=== PATIENT | male | born 1980 | race Caucasian/White ===

== ENCOUNTER 2020-12-08 01:45 | Inpatient (IN) | payer MEDICAID, SELFPAY ==
[2020-12-08] VITALS (52 sets, daily range): BP systolic 98–147; BP diastolic 63–87; PULSE 44–78; RESP 8–23; TEMP 36.6–36.8; O2SAT 89–100; BMI 19.5
--- NOTE | 2020-12-08 02:00 | XRR_ITS ---
PROCEDURE INFORMATION: Exam: XR Chest Exam date and time: 12/08/2020 2:00 AM Age: 40 years old Clinical indication: Other: AMS TECHNIQUE: Imaging protocol: XR of the chest. Views: 1 view. COMPARISON: No relevant prior studies available. FINDINGS: Lungs: Mild nonspecific bilateral pulmonary opacities suggesting mild pneumonia. Pleural spaces: Unremarkable. No pleural effusion. No pneumothorax. Heart/Mediastinum: Unremarkable. No cardiomegaly. Bones/joints: Unremarkable. XR/XR chest 1V portable [id number] IMPRESSION: Mild nonspecific bilateral pulmonary opacities suggesting mild pneumonia.
--- NOTE | 2020-12-08 02:00 | CTR_ITS ---
PROCEDURE INFORMATION: Exam: CT Head Without Contrast Exam date and time: 12/08/2020 2:00 AM Age: 40 years old Clinical indication: Altered mental status/memory loss; Confusion or disorientation; Additional info: AMS TECHNIQUE: Imaging protocol: Computed tomography of the head without contrast. Radiation optimization: All CT scans at this facility use at least one of these dose optimization techniques: automated exposure control; mA and/or kV adjustment per patient size (includes targeted exams where dose is matched to clinical indication); or iterative reconstruction. COMPARISON: No relevant prior studies available. RADIATION DOSE METRICS: Total DLP (mGy-cm): 749.08 FINDINGS: Brain: Mild frontotemporal lobe atrophy. Correlation with frontotemporal dementia may be helpful. Cerebral ventricles: No ventriculomegaly. Paranasal sinuses: Visualized sinuses are unremarkable. No fluid levels. Mastoid air cells: Visualized mastoid air cells are well aerated. Bones/joints: Unremarkable. No acute fracture. Soft tissues: Unremarkable. CT/CT head wo con* [id number] IMPRESSION: Mild frontotemporal lobe atrophy. Correlation with frontotemporal dementia may be helpful. Radiation Dose CTDIVOL = (mGy): DLP = 749.08 (mGy-cm)
--- NOTE | 2020-12-08 02:00 | ECG_ITS ---
[facility] Test Date: 2020-12-08 Pat Name: Satya Moody Department: Room: Gender: Male Towel Folder: : 1980 Requested By: Mason Partida Order Number: [id number] Farley MD: Jannet Mike M.D. Measurements Intervals Alexis Rate: 47 P: 43 AK: 178 QRS: 64 QRSD: 105 T: 53 QT: 428 QTc: 382 Interpretive Statements SINUS BRADYCARDIA POSSIBLE RIGHT VENTRICULAR CONDUCTION DELAY [RSR (QR) IN V1/V2] No previous ECG available for comparison Electronically Signed On 12-08-2020 13:05:15 CDT by Jannet Mike M.D. [id number]
[2020-12-08 02:02] LABS: ABG PH Result 7.42 (7.35-7.45); Arterial Blood Gas Hematocrit 36.4 % (42-52); Base Excess ABG 1.6 mmol/L (-2.0-2.0); Blood Gas Operator Identificat HARKR; Blood Gas Sample Site Brachial, right; Blood Gas Sample Type Arterial; Carboxyhemoglobin 0.8 %THgb (0.4-20.1); HCO3 ABG 26.3 mmol/L (22-26); Ionized Calcium Level - ABG 1.2 mmol/L (1.1-1.4); Oxygen Device ROOM AIR; Oxygen Saturation ABG 98.7; Potassium Level - ABG 3.7 mmol/L (3.5-5.0); Total Hemoglobin 11.9 g/dL (14-18)
[2020-12-08 02:12] LABS: Glucose Point of Care 103 mg/dL (70-110)
[2020-12-08 02:12] LABS: Basophils # 0.1 10^3/uL (0.0-0.1); Basophils % 0.8 %; Eosinophils # 0.8 10^3/uL (0.0-0.8); Hematocrit 35.1 % (42.0-52.0); Hemoglobin 11.9 g/dL (11.7-16.6); Lymphocytes # 5.1 10^3/uL (0.8-4.8); Lymphocytes % 45.6 %; Mean Corpuscular HGB Conc 33.9 g/dL (30.0-36.0); Mean Corpuscular Hemoglobin 32.9 pg (28.0-34.0); Mean Platelet Volume 10.4 fL (7.4-10.4); Monocytes # 0.8 10^3/uL (0.2-0.9); Monocytes % 7.2 %; Neutrophils # 4.33 10^3/uL (1.8-7.7); Neutrophils % 39.2 %; Nucleated Red Blood Cells % 0 %; Platelet Count 276 10^3/cmm (130-400); Red Blood Count 3.62 10^6/uL (4.1-5.3); Red Cell Distribution Width 12.4 % (12.1-15.1); White Blood Count 11.1 10^3/uL (4.0-10.0)
[2020-12-08] MEDS: sodium chloride 0.9% 1,000 ML 999 ML IV ×2 (02:36→03:22)
[2020-12-08 02:38] LABS: Alanine Aminotransferase 13 U/L (0-41); Albumin Level 3.5 g/dL (3.5-5.2); Alkaline Phosphatase 63 IU/L (40-130); Aspartate Amino Transferase 12 U/L (0-40); Blood Urea Nitrogen 11 mg/dL (6-20); Calcium 8.2 mg/dL (8.5-10.5); Carbon Dioxide 27 mmol/L (22-29); Chloride 108 mmol/L (98-107); Globulin 2.1 g/dL (1.3-4.6); Glomerular Filtration Rate 83.6 mL/min (90-130); Glucose 96 mg/dL (65-115); Osmolality Calculated 295 mOsm/kg (285-295); Salicylate 2.5 mg/dL (3-10); Sodium 143 mmol/L (136-145); Total Bilirubin 0.2 mg/dL (0.15-1.2); Total Protein 5.6 g/dL (6.6-8.7)
--- NOTE | 2020-12-08 02:39 | ED_ITS ---
HPI - Psych General: Chief Complaint: Psychiatric Symptoms Stated Complaint: SI ATTEMPT Time Seen by Provider: 12/08/20 01:46 Procedures Laceration Laceration 1: Site: upper extremity Side (If applicable): left Size (cm): 14 Description: linear and clean Depth: involves muscle layer Local Anesthetic: lidocaine 1% Amount of anesthesia used (mL): 4 Pre-repair: wound explored, irrigated extensively and deep structures intact Skin layer closed with: other (ethilon) Size (cm): 3-0 and 4-0 Number of sutures: 8 Technique: simple, interrupted Subcutaneous layer closed with: vicryl Size: 4-0 Number of sutures: 3 Course Vital Signs: Vital signs: Vital Signs Temperature 97.8 F 12/08/20 01:45 Pulse Rate 52 L 12/08/20 02:30 Respiratory Rate 16 12/08/20 02:20 Blood Pressure 116/76 12/08/20 02:30 Pulse Oximetry 97 12/08/20 02:30 MDM - Psych Lab Data: Labs: Lab Results 12/08/20 12/08/20 12/08/20 Range/Units 01:52 02:02 02:06 WBC 11.1 H (4.0-10.0) 10^3/ uL RBC 3.62 L (4.1-5.3) 10^6/u L Hgb 11.9 (11.7-16.6) g/dL Hct 35.1 L (42.0-52.0) % MCV 97.0 H (80-94) fl MCH 32.9 (28.0-34.0) pg MCHC 33.9 (30.0-36.0) g/dL RDW 12.4 (12.1-15.1) % Plt Count 276 (130-400) 10^3/c mm MPV 10.4 (7.4-10.4) fL Neut % (Auto) 39.2 % Lymph % (Auto) 45.6 % Pershing % (Auto) 7.2 % Eos % (Auto) 7.0 % Baso % (Auto) 0.8 % Neut # (Auto) 4.33 (1.8-7.7) 10^3/u L Lymph # (Auto) 5.1 H (0.8-4.8) 10^3/u L Pershing # (Auto) 0.8 (0.2-0.9) 10^3/u L Eos # (Auto) 0.8 (0.0-0.8) 10^3/u L Baso # (Auto) 0.1 (0.0-0.1) 10^3/u L Nucleated RBC % (a uto) 0 % Nucleated RBCs # 0.0 /100WBC Specimen Type Arterial Sample Site Brachial, right ABG pH 7.42 (7.35-7.45) ABG pCO2 41.0 (35-45) mmHg ABG pO2 101.0 H (80.0-100.0) mmH g ABG HCO3 26.3 H (22-26) mmol/L ABG O2 Saturation 98.7 ABG Base Excess 1.6 (-2.0-2.0) mmol/ L Rajendra Test N/a Hematocrit 36.4 L (42-52) % Hgb O2 Saturation 97.0 (95-100) % Carboxyhemoglobin 0.8 (0.4-20.1) %THgb Methemoglobin 1.0 (0.4-1.5) % Total Hemoglobin 11.9 L (14-18) g/dL Sodium 141.0 (131-143) mmol/L Potassium 3.7 (3.5-5.0) mmol/L Glucose 98.0 (70-115) mg/dL Ionized Calcium 1.2 (1.1-1.4) mmol/L O2 Delivery Device Room air Simplex Printer Installer ID Harkr Carbon Dioxide (22-29) mmol/L Anion Gap (5-19) BUN (6-20) mg/dL Creatinine (0.7-1.2) mg/dL POC Glucose 103 (70-110) mg/dL Calculated Osmolal ity (285-295) mOsm/k g Total Bilirubin (0.15-1.2) mg/dL AST (0-40) U/L ALT (0-41) U/L Alkaline Phosphata se (40-130) IU/L Albumin (3.5-5.2) g/dL Globulin (1.3-4.6) g/dL 12/08/20 Range/Units 02:06 WBC (4.0-10.0) 10^3/ uL RBC (4.1-5.3) 10^6/u L Hgb (11.7-16.6) g/dL Hct (42.0-52.0) % MCV (80-94) fl MCH (28.0-34.0) pg MCHC (30.0-36.0) g/dL RDW (12.1-15.1) % Plt Count (130-400) 10^3/c mm MPV (7.4-10.4) fL Neut % (Auto) % Lymph % (Auto) % Pershing % (Auto) % Eos % (Auto) % Baso % (Auto) % Neut # (Auto) (1.8-7.7) 10^3/u L Lymph # (Auto) (0.8-4.8) 10^3/u L Pershing # (Auto) (0.2-0.9) 10^3/u L Eos # (Auto) (0.0-0.8) 10^3/u L Baso # (Auto) (0.0-0.1) 10^3/u L Nucleated RBC % (a uto) % Nucleated RBCs # /100WBC Specimen Type Sample Site ABG pH (7.35-7.45) ABG pCO2 (35-45) mmHg ABG pO2 (80.0-100.0) mmH g ABG HCO3 (22-26) mmol/L ABG O2 Saturation ABG Base Excess (-2.0-2.0) mmol/ L Rajendra Test Hematocrit (42-52) % Hgb O2 Saturation (95-100) % Carboxyhemoglobin (0.4-20.1) %THgb Methemoglobin (0.4-1.5) % Total Hemoglobin (14-18) g/dL Sodium 143 (131-143) mmol/L Potassium 4.0 (3.5-5.0) mmol/L Glucose 96 (70-115) mg/dL Ionized Calcium (1.1-1.4) mmol/L O2 Delivery Device Simplex Printer Installer ID Carbon Dioxide 27 (22-29) mmol/L Anion Gap 12.0 (5-19) BUN 11 (6-20) mg/dL Creatinine 1.0 (0.7-1.2) mg/dL POC Glucose (70-110) mg/dL Calculated Osmolal ity 295 (285-295) mOsm/k g Total Bilirubin 0.2 (0.15-1.2) mg/dL AST 12 (0-40) U/L ALT 13 (0-41) U/L Alkaline Phosphata se 63 (40-130) IU/L Albumin 3.5 (3.5-5.2) g/dL Globulin 2.1 (1.3-4.6) g/dL Coding Level of Care Code ED Curing Finisher for Vance Gibbons
[2020-12-08 02:43] LABS: Acetaminophen < 5.0 ug/mL (10-30)
--- NOTE | 2020-12-08 03:03 | ED_ITS ---
HPI - Psych General: Chief Complaint: Psychiatric Symptoms Stated Complaint: SI ATTEMPT Time Seen by Provider: 12/08/20 01:46 History of Present Illness: HPI Narrative: 40-year-old male who states that he took somewhere between 5 and 8 Klonopin around 5 hours prior to arrival. He also cut his own left wrist. He states that he does not want to live, because he is in a bad way . EMS was called. He was found to be obtunded on arrival, with a GCS of 12. Narcan was pushed, but with no improvement. The patient is more awake currently. He is able to give us a history. Bleeding was controlled with the laceration. MD complaint: suicidal ideation and other Onset (ago): hour(s) Duration: constant History of same: Yes Relieving factors: none Exacerbating factors: none Associated psychiatric symptoms: depression and suicidal ideation Associated symptoms: Reports suicidal ideation; Deny auditory hallucinations, visual hallucinations or homicidal ideation If self harm: admits thoughts of self harm, has plan, has acted on plan, intentional overdose and self-inflicted trauma Review of Systems Const: Denies: fever(s) Eyes: Denies: change in vision Card: Denies: chest pain Resp: Denies: dyspnea GI: Denies: abdominal pain, nausea or vomiting : Denies: difficulty urinating Psych: Reports: suicidal ideation; Denies: visual hallucinations, auditory hallucinations or homicidal ideation Physical Exam Const: COMMON NORMALS: no acute distress GENERAL APPEARANCE: cooperative and lethargic NUTRITIONAL APPEARANCE: thin ORIENTATION/CONSCIOUSNESS: Yes lethargic HENMT: COMMON NORMALS: normocephalic HEAD & SCALP: normocephalic Eye: COMMON NORMALS: Equal, round and reactive pupils present and EOMs intact bilaterally PUPIL: Yes Equal, round and reactive pupils present Chest: COMMONS NORMALS: normal inspection of the chest Resp: COMMON NORMALS: normal respiratory effort, No use of accessory muscles and clear to auscultation bilaterally AUSCULTATION: clear to auscultation bilaterally Cardio: COMMON NORMALS: regular rhythm and Peripheral pulses 2+ throughout RATE: bradycardic RHYTHM: regular rhythm PERIPHERAL PULSES: Peripheral pulses 2+ throughout GI: COMMON NORMALS: Normal to inspection, nondistended, normoactive bowel sounds present, Soft to palpation and non-tender PALPATION: Yes Soft to palpation Neuro: ALLAN COMA SCALE: document GCS findings [place] coma scale eye opening: Spontaneous Allan coma scale verbal response: Orientated [place] coma scale motor response: Obey commands Allan coma scale total score: 15 SENSORIUM/ORIENTATION: Yes lethargic SPEECH: abnormal speech Details: slurred MOTOR EXAM: Normal motor muscle tone present throughout Psych: COMMON NORMALS: Normal thought process present and cooperative ATTITUDE: Yes calm SPEECH: Yes slurred MOOD & AFFECT: Yes depressed mood THOUGHT PROCESS: Normal thought process present THOUGHT CONTENT: Yes Suicidality present ATTENTION/CONCENTRATION: Yes attention grossly intact and Yes concentration grossly intact Skin: NARRATIVE SKIN EXAM: Mildly deep laceration of the left wrist. 5 to 6 cm. Involves subcutaneous fat, and superficial fascia. No tendon involvement seen. Patient able to flex all fingers fully individually. No strength deficit. Bleeding is controlled. Procedures Laceration Laceration 1: Site: upper extremity Side (If applicable): left Size (cm): 6 Description: linear Local Anesthetic: lidocaine 1% Pre-repair: wound explored, irrigated extensively and deep structures intact Skin layer closed with: nylon Size (cm): 4-0 Number of sutures: 8 Technique: simple, interrupted Subcutaneous layer closed with: vicryl Size: 4-0 Number of sutures: 3 Course Consultations: Consultation #1: Leopoldo Time: 08:09 Vital Signs: Vital signs: Vital Signs Temperature 97.8 F 12/08/20 01:45 Pulse Rate 70 12/08/20 07:55 Respiratory Rate 16 12/08/20 07:33 Blood Pressure 135/86 12/08/20 07:55 Pulse Oximetry 96 12/08/20 07:55 MDM - Psych MDM Narrative: Medical decision making narrative: Patient was initially bradycardic, in the low 40s. He maintained blood pressure throughout. Heart rate is 60 currently, sinus. His blood pressure is 114/72 with oxygen saturations 96%. Patient is well cleared his ingestion by now. he is medically stable. His alcohol level is nondetectable. Urine drug screen is positive for not only benzodiazepines, but opiates, barbiturates, and marijuana as well. Labs are otherwise not remarkable. Lab Data: Labs: Lab Results 12/08/20 12/08/20 12/08/20 Range/Units 01:52 02:02 02:06 WBC 11.1 H (4.0-10.0) 10^3/ uL RBC 3.62 L (4.1-5.3) 10^6/u L Hgb 11.9 (11.7-16.6) g/dL Hct 35.1 L (42.0-52.0) % MCV 97.0 H (80-94) fl MCH 32.9 (28.0-34.0) pg MCHC 33.9 (30.0-36.0) g/dL RDW 12.4 (12.1-15.1) % Plt Count 276 (130-400) 10^3/c mm MPV 10.4 (7.4-10.4) fL Neut % (Auto) 39.2 % Lymph % (Auto) 45.6 % Lares % (Auto) 7.2 % Eos % (Auto) 7.0 % Baso % (Auto) 0.8 % Neut # (Auto) 4.33 (1.8-7.7) 10^3/u L Lymph # (Auto) 5.1 H (0.8-4.8) 10^3/u L Lares # (Auto) 0.8 (0.2-0.9) 10^3/u L Eos # (Auto) 0.8 (0.0-0.8) 10^3/u L Baso # (Auto) 0.1 (0.0-0.1) 10^3/u L Nucleated RBC % (a uto) 0 % Nucleated RBCs # 0.0 /100WBC Specimen Type Arterial Sample Site Brachial, right ABG pH 7.42 (7.35-7.45) ABG pCO2 41.0 (35-45) mmHg ABG pO2 101.0 H (80.0-100.0) mmH g ABG HCO3 26.3 H (22-26) mmol/L ABG O2 Saturation 98.7 ABG Base Excess 1.6 (-2.0-2.0) mmol/ L Rajendra Test N/a Hematocrit 36.4 L (42-52) % Hgb O2 Saturation 97.0 (95-100) % Carboxyhemoglobin 0.8 (0.4-20.1) %THgb Methemoglobin 1.0 (0.4-1.5) % Total Hemoglobin 11.9 L (14-18) g/dL Sodium 141.0 (131-143) mmol/L Potassium 3.7 (3.5-5.0) mmol/L Glucose 98.0 (70-115) mg/dL Ionized Calcium 1.2 (1.1-1.4) mmol/L O2 Delivery Device Room air Manager Property ID Harkr Chloride (98-107) mmol/L Carbon Dioxide (22-29) mmol/L Anion Gap (5-19) BUN (6-20) mg/dL Creatinine (0.7-1.2) mg/dL GFR Calculation (90-130) mL/min POC Glucose 103 (70-110) mg/dL Calculated Osmolal ity (285-295) mOsm/k g Calcium (8.5-10.5) mg/dL Total Bilirubin (0.15-1.2) mg/dL AST (0-40) U/L ALT (0-41) U/L Alkaline Phosphata se (40-130) IU/L Total Protein (6.6-8.7) g/dL Albumin (3.5-5.2) g/dL Globulin (1.3-4.6) g/dL Urine Color (Yellow) Urine Appearance (CLEAR) Urine pH (5-7) Ur Specific Gravit y (1.005-1.030) Urine Protein (Negative) Urine Glucose (UA) (Normal) Urine Ketones (Negative) Urine Blood (Negative) Urine Nitrate (Negative) Urine Bilirubin (Negative) Urine Urobilinogen (Negative) mg/dL Ur Leukocyte Cydney ase (Negative) Salicylates (3-10) mg/dL Urine Opiates Scre en (Negative) ng/mL Acetaminophen (10-30) ug/mL Ur Barbiturates Sc reen (Negative) ng/mL Ur Phencyclidine S crn (Negative) ng/mL Ur Amphetamines Sc reen (Negative) ng/mL U Benzodiazepines Scrn (Negative) ng/mL Urine Cocaine Scre en (Negative) ng/mL U Marijuana (THC) Screen (Negative) ng/mL Ethyl Alcohol (0-10) mg/dL 12/08/20 12/08/20 12/08/20 Range/Units 02:06 02:06 07:36 WBC (4.0-10.0) 10^3/ uL RBC (4.1-5.3) 10^6/u L Hgb (11.7-16.6) g/dL Hct (42.0-52.0) % MCV (80-94) fl MCH (28.0-34.0) pg MCHC (30.0-36.0) g/dL RDW (12.1-15.1) % Plt Count (130-400) 10^3/c mm MPV (7.4-10.4) fL Neut % (Auto) % Lymph % (Auto) % Lares % (Auto) % Eos % (Auto) % Baso % (Auto) % Neut # (Auto) (1.8-7.7) 10^3/u L Lymph # (Auto) (0.8-4.8) 10^3/u L Lares # (Auto) (0.2-0.9) 10^3/u L Eos # (Auto) (0.0-0.8) 10^3/u L Baso # (Auto) (0.0-0.1) 10^3/u L Nucleated RBC % (a uto) % Nucleated RBCs # /100WBC Specimen Type Sample Site ABG pH (7.35-7.45) ABG pCO2 (35-45) mmHg ABG pO2 (80.0-100.0) mmH g ABG HCO3 (22-26) mmol/L ABG O2 Saturation ABG Base Excess (-2.0-2.0) mmol/ L Rajendra Test Hematocrit (42-52) % Hgb O2 Saturation (95-100) % Carboxyhemoglobin (0.4-20.1) %THgb Methemoglobin (0.4-1.5) % Total Hemoglobin (14-18) g/dL Sodium 143 (131-143) mmol/L Potassium 4.0 (3.5-5.0) mmol/L Glucose 96 (70-115) mg/dL Ionized Calcium (1.1-1.4) mmol/L O2 Delivery Device Manager Property ID Chloride 108 H (98-107) mmol/L Carbon Dioxide 27 (22-29) mmol/L Anion Gap 12.0 (5-19) BUN 11 (6-20) mg/dL Creatinine 1.0 (0.7-1.2) mg/dL GFR Calculation 83.6 L (90-130) mL/min POC Glucose (70-110) mg/dL Calculated Osmolal ity 295 (285-295) mOsm/k g Calcium 8.2 L (8.5-10.5) mg/dL Total Bilirubin 0.2 (0.15-1.2) mg/dL AST 12 (0-40) U/L ALT 13 (0-41) U/L Alkaline Phosphata se 63 (40-130) IU/L Total Protein 5.6 L (6.6-8.7) g/dL Albumin 3.5 (3.5-5.2) g/dL Globulin 2.1 (1.3-4.6) g/dL Urine Color Straw (Yellow) Urine Appearance Clear (CLEAR) Urine pH 5 (5-7) Ur Specific Gravit y 1.015 (1.005-1.030) Urine Protein Neg (Negative) Urine Glucose (UA) Norm (Normal) Urine Ketones Negative (Negative) Urine Blood Neg (Negative) Urine Nitrate Negative (Negative) Urine Bilirubin Neg (Negative) Urine Urobilinogen Norm (Negative) mg/dL Ur Leukocyte Cydney ase Negative (Negative) Salicylates 2.5 L (3-10) mg/dL Urine Opiates Scre en (Negative) ng/mL Acetaminophen < 5.0 L (10-30) ug/mL Ur Barbiturates Sc reen (Negative) ng/mL Ur Phencyclidine S crn (Negative) ng/mL Ur Amphetamines Sc reen (Negative) ng/mL U Benzodiazepines Scrn (Negative) ng/mL Urine Cocaine Scre en (Negative) ng/mL U Marijuana (THC) Screen (Negative) ng/mL Ethyl Alcohol < 10 (0-10) mg/dL 12/08/20 Range/Units 07:36 WBC (4.0-10.0) 10^3/ uL RBC (4.1-5.3) 10^6/u L Hgb (11.7-16.6) g/dL Hct (42.0-52.0) % MCV (80-94) fl MCH (28.0-34.0) pg MCHC (30.0-36.0) g/dL RDW (12.1-15.1) % Plt Count (130-400) 10^3/c mm MPV (7.4-10.4) fL Neut % (Auto) % Lymph % (Auto) % Lares % (Auto) % Eos % (Auto) % Baso % (Auto) % Neut # (Auto) (1.8-7.7) 10^3/u L Lymph # (Auto) (0.8-4.8) 10^3/u L Lares # (Auto) (0.2-0.9) 10^3/u L Eos # (Auto) (0.0-0.8) 10^3/u L Baso # (Auto) (0.0-0.1) 10^3/u L Nucleated RBC % (a uto) % Nucleated RBCs # /100WBC Specimen Type Sample Site ABG pH (7.35-7.45) ABG pCO2 (35-45) mmHg ABG pO2 (80.0-100.0) mmH g ABG HCO3 (22-26) mmol/L ABG O2 Saturation ABG Base Excess (-2.0-2.0) mmol/ L Rajendra Test Hematocrit (42-52) % Hgb O2 Saturation (95-100) % Carboxyhemoglobin (0.4-20.1) %THgb Methemoglobin (0.4-1.5) % Total Hemoglobin (14-18) g/dL Sodium (131-143) mmol/L Potassium (3.5-5.0) mmol/L Glucose (70-115) mg/dL Ionized Calcium (1.1-1.4) mmol/L O2 Delivery Device Manager Property ID Chloride (98-107) mmol/L Carbon Dioxide (22-29) mmol/L Anion Gap (5-19) BUN (6-20) mg/dL Creatinine (0.7-1.2) mg/dL GFR Calculation (90-130) mL/min POC Glucose (70-110) mg/dL Calculated Osmolal ity (285-295) mOsm/k g Calcium (8.5-10.5) mg/dL Total Bilirubin (0.15-1.2) mg/dL AST (0-40) U/L ALT (0-41) U/L Alkaline Phosphata se (40-130) IU/L Total Protein (6.6-8.7) g/dL Albumin (3.5-5.2) g/dL Globulin (1.3-4.6) g/dL Urine Color (Yellow) Urine Appearance (CLEAR) Urine pH (5-7) Ur Specific Gravit y (1.005-1.030) Urine Protein (Negative) Urine Glucose (UA) (Normal) Urine Ketones (Negative) Urine Blood (Negative) Urine Nitrate (Negative) Urine Bilirubin (Negative) Urine Urobilinogen (Negative) mg/dL Ur Leukocyte Cydney ase (Negative) Salicylates (3-10) mg/dL Urine Opiates Scre en Positive H (Negative) ng/mL Acetaminophen (10-30) ug/mL Ur Barbiturates Sc reen Positive H (Negative) ng/mL Ur Phencyclidine S crn Negative (Negative) ng/mL Ur Amphetamines Sc reen Negative (Negative) ng/mL U Benzodiazepines Scrn Positive H (Negative) ng/mL Urine Cocaine Scre en Negative (Negative) ng/mL U Marijuana (THC) Screen Positive H (Negative) ng/mL Ethyl Alcohol (0-10) mg/dL Discharge Plan Discharge Patient Disposition: Admitted As Inpatient Clinical Impression: Suicidal ideation Condition: Stable Coding Level of Care Code ED Packaging Materials Inspector for Vance Gibbons Exam Comprehensive
[2020-12-08 03:37] LABS: Alcohol Level < 10 mg/dL (0-10)
[2020-12-08 07:38] LABS: Add Urine Microscopic? NO; Charge for UA Resulting for Rev
[2020-12-08 07:45] LABS: Bilirubin Urine Neg (Negative); Blood Urine Neg (Negative); Glucose Urine UA Norm (Normal); Ketones Urine Negative (Negative); Leukocyte Esterase Urine Negative (Negative); Nitrate Urine Negative (Negative); Protein Urine Neg (Negative); Specific Gravity, Urine 1.015 (1.005-1.030); Urine Appearance Clear (CLEAR); Urine Color Straw (Yellow); Urobilinogen Urine Norm (Negative); pH Urine 5 (5-7)
[2020-12-08 07:53] LABS: Amphetamines Screen Urine Negative (Negative); Barbiturates Screen Urine Positive (Negative); Benzodiazepines Screen Urine Positive (Negative); Cocaine Screen Urine Negative (Negative); Opiate Screen Urine Positive (Negative); PCP Screen Urine Negative (Negative); THC Screen Urine Positive (Negative)
[2020-12-08] MEDS: LORazepam 2 mg/mL INJ 1 mL 1 MG IVP (11:15)
[2020-12-09 06:00] VITALS: BP 95/61; PULSE 72; RESP 19; TEMP 36.7; O2SAT 100
[2020-12-09 08:46] VITALS: BP 117/81
[2020-12-09] MEDS: propranolol 20 mg Tablet PO ×2 (08:48→17:53)
--- NOTE | 2020-12-09 12:18 | NPU.GN ---
[facility] Group Topic: 2 true one false General Mood of Group: Patient did attend group, he was properly dressed, on time, and had good hygiene. In group we played a game called 2 true one false. Everyone had to come up with 2 true statements about their self and one false statement about their self, this was a way to get group members to openly talk about themselves. They are able to utilize positive self talk. The group interacted properly and openly. We discussed the purpose of NPU, ways to openly speak with the physician and discussed the purpose of social and human services assistant and safe discharge.
[2020-12-09 14:00] VITALS: BP 121/78; PULSE 80; RESP 18; TEMP 37; O2SAT 99
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
[2020-12-09 21:25] VITALS: BP 120/79; PULSE 74; RESP 18; TEMP 37.3; O2SAT 97
[2020-12-09] MEDS: acetaminophen 325 mg Tablet 650 MG PO (22:36)
[2020-12-09] MEDS: hyDROXYzine 25 mg Capsule 50 MG PO (22:38)
[2020-12-09] MEDS: mirtazapine 15 mg Tablet PO (22:38)
[2020-12-09] MEDS: trazodone 50 mg Tablet PO (22:38)
[2020-12-10 06:00] VITALS: BP 105/69; PULSE 73; RESP 17; TEMP 37.4; O2SAT 97
[2020-12-10] MEDS: propranolol 20 mg Tablet PO ×2 (09:39→17:22)
[2020-12-10 14:00] VITALS: BP 121/81; PULSE 77; RESP 18; TEMP 37.2; O2SAT 100
--- NOTE | 2020-12-10 16:01 | P.PN_ITS ---
Subjective NPU Subjective: Interval history: Satya presented today reporting that he feels like he is doing okay with the medication. He discussed concerns about his lack of transparency with his urine drug screen. He really did not have a clear answer or excuse. We discussed the importance of engaging in treatment which he seems somewhat ambivalent about trying to maintain his previous story. We discussed pain holding up and held needing to sign in if we kept him past tomorrow. Mental Status Exam MSE Comments: This is a well-nourished, well-developed white male in hospital scrubs with long hair and dan with limited grooming adequate eye contact. No abnormal movements except for mild psychomotor retardation. Mostly cooperative with exam in no acute distress note that he seems to be a less than forthcoming historian given his report of past drug use and his UDS to be riddled with diff erent drugs. Speech was slightly decreased rate and volume. Mood described as a little better, affect congruent. Thought process organized. Thought content: Patient denied suicidal or homicidal ideation, there are no delusions reported or noted, he denied any auditory or visual hallucinations. Attention and concentration appeared intact and memory was unreliable in some instances probably purposefully but otherwise appeared reliable, but none were formally tested. He is alert and oriented x3. Insight and judgment are limited and impulse control is impaired. Vitals/I&O/Wt Last Vital Signs Temp 98.9 F 12/10/20 14:00 Pulse 77 12/10/20 14:00 Resp 18 12/10/20 14:00 BP 121/81 12/10/20 14:00 Pulse Ox 100 12/10/20 14:00 Data NPU : 12/08/20 02:06 12/08/20 02:06 A&P Additional A&P Information (1) Suicidal ideation: (2) Trauma in childhood: (3) Partner relational problem: (4) Depression: (5) Cannabis abuse: (6) Polysubstance abuse: Additional A&P Information This is a 40-year-old white male with a long history of addiction who presents after a suicidal gesture requiring significant stitches denying current addict ion with a positive drug screen open to medication for depression. 1. Continue current medication. 2. Continue every 15 minute checks for safety. 3. Encourage individual, group and milieu therapies. 4. Encourage sober living treatment after discharge at the highest level of care to which he is willing to commit. Involuntary Hold Information 96 Hour Hold: 96 Hour Involuntary Admission: Yes 96 Hour Hold Ending Date: 12/11/20 96 Hour Hold Ending Time: 05:40 Attestations NPU Medical Necessity Statement*: Inpatient hospitalization is medically necessary and the clinically appropriate intervention at this time. We will monitor medications and make changes as indicated. Likely length of stay 2-4 days. Coding Level of Care Code Acute Zumba Instructor for Vance Gibbons
[2020-12-10] MEDS: acetaminophen 325 mg Tablet 650 MG PO ×2 (16:43→20:49)
[2020-12-10 20:22] VITALS: BP 127/85; PULSE 73; RESP 19; TEMP 36.9; O2SAT 97
[2020-12-10] MEDS: mirtazapine 15 mg Tablet PO (20:49)
[2020-12-11 06:00] VITALS: BP 115/68; PULSE 74; RESP 17; TEMP 37.3; O2SAT 97
[2020-12-11] MEDS: propranolol 20 mg Tablet PO ×2 (07:53→17:49)
--- NOTE | 2020-12-11 13:35 | NPU.GN ---
[facility] Unit Group Topic:Communications General Mood of Group:Group Topic:Communications General Mood of Group: The patient was on time to group and did participate. The patient was dressed appropriately and had good hygiene. The topic was communication. Communicating with doctors, family, friends and even authorities such as probation and parole officers. The patients were given a card a piece that asked two to three questions, for example, one was What words would you use to describe yourself? What words would others use to describe you? This opened everyone up to conversation. Every one participated and spoke with each other. We spoke about ways to speak with your doctor and ways to speak with social security specialist to get the help that they need while they are in Neuro psych. The patient has a good understanding of communication at this time. Tad has thoroughly enjoyed having group and does participate appropriately.
[2020-12-11 14:00] VITALS: BP 145/81; PULSE 86; RESP 18; TEMP 36.7; O2SAT 96
--- NOTE | 2020-12-11 18:34 | P.PN_ITS ---
Subjective NPU Subjective: Interval history: Patient presents today continuing to take more responsibility for the events of the other night. Continue to identify that his recent relapse on illicit substances has been a significant contributing factor to his current situation. He continues to deny lethality and contract for safety. He continues to take the medication without reservation and show improvement in affect. We discussed discharge in the morning if there are no problems overnight. Mental Status Exam MSE Comments: This is a well-nourished, well-developed white male in hospital scrubs with long hair and dan with limited grooming adequate eye contact. No abnormal movements except for mild psychomotor retardation, which is improving. Cooperative with exam in no acute distress. Speech was slightly decreased rate and volume. Mood described as much better, affect congruent. Thought process organized. Thought content: Patient denied suicidal or homicidal ideation, there are no delusions reported or noted, he denied any auditory or visual hallucinations. Attention and concentration appeared intact and memory was reliable, but none were formally tested. He is alert and oriented x3. Insight and judgment are improving, and impulse control is limited, but improving. Vitals/I&O/Wt Last Vital Signs Temp 99.9 F H 12/11/20 22:00 Pulse 71 12/11/20 22:00 Resp 18 12/11/20 22:00 BP 136/91 12/11/20 22:00 Pulse Ox 97 12/11/20 22:00 Data NPU : 12/08/20 02:06 12/08/20 02:06 A&P Additional A&P Information (1) Suicidal ideation: (2) Trauma in childhood: (3) Partner relational problem: (4) Depression: (5) Cannabis abuse: (6) Polysubstance abuse: Additional A&P Information This is a 40-year-old white male with a long history of addiction who presents after a suicidal gesture requiring significant stitches denying current addiction with a positive drug screen open to medication for depression. 1. Continue current medication. 2. Continue every 15 minute checks for safety. 3. Encourage individual, group and milieu therapies. 4. Encourage sober living treatment after discharge at the highest level of care to which he is willing to commit. Involuntary Hold Information 96 Hour Hold: 96 Hour Involuntary Admission: Yes 96 Hour Hold Ending Date: 12/11/20 96 Hour Hold Ending Time: 05:40 Attestations NPU Medical Necessity Statement*: Inpatient hospitalization is medically necessary and the clinically appropriate intervention at this time. We will monitor medications and make changes as indicated. Likely length of stay 1-3 days. Coding Level of Care Code Acute Laborer Pipeline for Vance Gibbons
[2020-12-11] MEDS: acetaminophen 325 mg Tablet 650 MG PO (19:03)
[2020-12-11] MEDS: mirtazapine 15 mg Tablet PO (21:25)
[2020-12-11] MEDS: TRAMadol 50 mg Tablet PO (21:31)
[2020-12-11] MEDS: trazodone 50 mg Tablet PO (21:32)
[2020-12-11 22:00] VITALS: BP 136/91; PULSE 71; RESP 18; TEMP 37.7; O2SAT 97
[2020-12-12 06:00] VITALS: BP 124/62; PULSE 68; RESP 16; TEMP 37; O2SAT 98
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
[2020-12-12 09:37] VITALS: BP 124/62; PULSE 68; RESP 16; TEMP 37; O2SAT 98
[2020-12-12] MEDS: propranolol 20 mg Tablet PO (10:02)
== END 2020-12-12 12:02 | disposition home or self-care (01) | DRG 908 ==
LOC: ER 08:09 → ER IP 13:06 → NP 17:07
PROVIDERS: Admitting Provider Psychiatry & Neurology Psychiatry; Emergency Provider Emergency Medicine; PCP Family Medicine; Visit Provider Psychiatry & Neurology Psychiatry
DX: T42.4X2A Poisoning by benzodiazepines, intentional self-harm, initial encounter (principal); R45.851 Suicidal ideations; F32.9 Major depressive disorder, single episode, unspecified; S61.512A Laceration without foreign body of left wrist, initial encounter; X78.1XXA Intentional self-harm by knife, initial encounter; Z63.0 Problems in relationship with spouse or partner; M06.9 Rheumatoid arthritis, unspecified; F12.10 Cannabis abuse, uncomplicated
CPT/HCPCS: 12032; 12035; 36416; 36600; 70450; 71045; 80051; 80053; 80306; 80307; 81003; 82330; 82805; 82962; 85025; 93005; 96361; 96374; 99285; J2060; J7030